=== PATIENT | male | born 1935 | race Caucasian/White ===

== ENCOUNTER 2020-02-01 10:40 | Emergency (ER) | payer MEDICARE, BC ==
--- NOTE | 2020-02-01 10:51 | EDM.PDOC ---
ED HPI GENERAL MEDICAL PROBLEM - General Chief Complaint: General Stated Complaint: COVID Time Seen by Provider: 02/01/20 10:51 Source of Information: Reports: Patient, EMS, EMS Notes Reviewed, Old Records History Limitations: Reports: No Limitations - History of Present Illness INITIAL COMMENTS - FREE TEXT/NARRATIVE: Gerald, 84-year-old male, brought by ambulance from his residence today after sliding onto the floor with no noted injury. He has had increasing weakness since his discharge home on 28 January 2020. Underwent hip replacement on [address] Bernstein, [facility] in [place]. Diagnosed with positive COVID-19 on 24 January, at which time he was transferred to the [facility] for Covid care. He had been assisted with home therapy as well as home nursing staff aware of his overall situation. They had discussed the irritation at the distal aspect of his right hip incision that is been draining slightly. Today when the ambulance arrived, with the intent of assisting him into bed, his O2 saturations were 81 to 82% on room air. His significant weakness required them to do a total left as he did not have leg strength to assist. They placed him on a nonrebreather with 100% oxygen 12 L increasing his saturations to 96-97%. His respiratory rate was 21-22 nonlabored. He was brought to the emergency department secondary of the discussion with family as it was not recommended for a clinic appointment secondary of his positive Covid diagnosis. It is noted he is a full code per review of record, discussion with his , as well with Gerald himself. - Related Data Allergies Allergy/AdvReac Type Severity Reaction Status Date / Time No Known Drug Allergies Allergy Other Verified 12/14/13 17:57 Home Meds: Home Meds Apixaban [Eliquis] 2.5 mg PO BID 02/01/20 [History] Torsemide 40 mg PO DAILY 02/01/20 [History] dexAMETHasone [Dexamethasone] 6 mg PO DAILY 02/01/20 [History] oxyCODONE 1 - 2 tab PO Q8H PRN 02/01/20 [History] polyethylene glycoL 3350 [MiraLAX] 17 gm PO DAILY PRN 02/01/20 [History] Past Medical History HEENT History: Reports: Hard of Hearing, Impaired Vision Cardiovascular History: Reports: High Cholesterol, Hypertension Respiratory History: Reports: Sleep Apnea Gastrointestinal History: Reports: Gastritis, GERD, Helicobacter Pylori Endocrine/Metabolic History: Reports: Diabetes, Type II Hematologic History: Reports: Anemia Social & Family History - Family History Family Medical History: Noncontributory ED ROS GENERAL - Review of Systems Review Of Systems: Comprehensive ROS is negative, except as noted in HPI. ED EXAM, GENERAL - Physical Exam Exam: See Below Free Text/Narrative:: HEENT negative discharge or deformity wearing glasses. There is no icterus no injection. [place] moist mucous membranes with no erythema. Neck is soft supple no lymphadenopathy no JVD. Thorax is clear upper with mildly diminished raspy bases anterior and lateral. Cardiac is regular I do not appreciate any murmur. Abdomen is somewhat rotund with a peritoneal dialysis port present to the mid left abdominal wall secured in place on the thorax. Bowel sounds are noted. Weakness is noted in general general malaise. There are no focal deficits appreciated Skin is warm, dry with no integument disruption other than the distal incision site of the right hip which shows some friable tissue that appears to have been irritated and possibly removed with dressing change. Cultures obtained from this. Right wrist area has a thrill from hemodialysis shunt that he states has been used 3 times since its placement. Course - Vital Signs Last Recorded V/S: Last Vital Signs Temp 37.4 C 02/01/20 14:14 Pulse 78 02/01/20 14:14 Resp 20 02/01/20 14:02 BP 128/69 02/01/20 14:02 Pulse Ox 96 02/01/20 14:14 - Orders/Labs/Meds Orders: Active Orders 24 hr Category Date Time Status ABG [RT Arterial Blood Gases, ABG] [RC] Click to Edit Care 02/01/20 12:57 Active CULTURE BLOOD [BC] Stat Lab 02/01/20 11:20 Received MISCELLANEOUS CULT [MREF] Stat Lab 02/01/20 11:15 Received Sodium Chloride 0.9% [Normal Saline] 1,000 ml Med 02/01/20 12:15 Active IV ASDIRECTED Medication Orders Sodium Chloride (Normal Saline) 1,000 mls @ 150 mls/hr IV ASDIRECTED HORTENCIA Last Admin: 02/01/20 12:18 Dose: 150 mls/hr Documented by: STACIE Labs: Laboratory Tests 02/01/20 02/01/20 02/01/20 Range/Units 11:20 11:20 11:20 WBC 20.23 H (5.00-10.00) 10^3/uL RBC 2.71 L (4.50-6.00) 10^6/uL Hgb 8.6 L (13.0-17.0) g/dL Hct 25.2 L (40.0-52.0) % MCV 93.0 H (82.0-92.0) fL MCH 31.7 H (27.0-31.0) pg MCHC 34.1 (32.0-36.0) g/dL RDW 16.7 H (11.5-14.5) % Plt Count 254 (150-400) 10^3/uL MPV 10.2 (7.4-10.4) fL Immature Gran % (Auto) 2.4 (0.0-5.0) % Neut % (Auto) 86.9 H (50.0-70.0) % Lymph % (Auto) 5.9 L (20.0-40.0) % [place] % (Auto) 4.6 (2.0-8.0) % Eos % (Auto) 0.2 L (1.0-3.0) % Baso % (Auto) 0.0 (0.0-1.0) % Neut # (Auto) 17.55 H (2.50-7.00) 10^3/uL Lymph # (Auto) 1.20 (1.00-4.00) 10^3/uL [place] # (Auto) 0.94 H (0.10-0.80) 10^3/uL Eos # (Auto) 0.04 L (0.10-0.30) 10^3/uL Baso # (Auto) 0.01 (0.00-0.10) 10^3/uL Immature Gran # (Auto) 0.49 (0.00-0.50) 10^3/uL POC ABG pH (7.35-7.45) pH POC ABG pCO2 (35-48) mmHg POC ABG pO2 (83-108) mmHg POC ABG HCO3 (21-28) mmol/L ABG O2 Sat (Calculated) (94-98) % POC ABG Base Excess (-2-3) mmol/L Sodium 136 D (136-145) mmol/L Potassium 3.2 L D (3.3-5.3) mmol/L Chloride 96 L (98-115) mmol/L Carbon Dioxide 24.2 (21.0-32.0) mmol/L Anion Gap 19.0 H (5-15) mmol/L BUN 98 H* D (6-25) mg/dL Creatinine 8.23 H* D (0.51-1.17) mg/dL Est Cr Clr Drug Dosing 6.90 mL/min Estimated GFR (MDRD) 6 mL/min Glucose 94 (75 - 99) mg/dL Lactic Acid 1.7 (0.4-2.0) mmol/L Calcium 8.6 L (8.7-10.3) mg/dL Total Bilirubin 0.4 (0.2-1.0) mg/dL AST 31 (15-37) U/L ALT 9 L (12-78) U/L Alkaline Phosphatase 65 (46-116) IU/L Total Protein 6.9 (6.4-8.2) g/dL Albumin 2.00 L (3.00-4.80) g/dL 02/01/20 Range/Units 13:15 WBC (5.00-10.00) 10^3/uL RBC (4.50-6.00) 10^6/uL Hgb (13.0-17.0) g/dL Hct (40.0-52.0) % MCV (82.0-92.0) fL MCH (27.0-31.0) pg MCHC (32.0-36.0) g/dL RDW (11.5-14.5) % Plt Count (150-400) 10^3/uL MPV (7.4-10.4) fL Immature Gran % (Auto) (0.0-5.0) % Neut % (Auto) (50.0-70.0) % Lymph % (Auto) (20.0-40.0) % [place] % (Auto) (2.0-8.0) % Eos % (Auto) (1.0-3.0) % Baso % (Auto) (0.0-1.0) % Neut # (Auto) (2.50-7.00) 10^3/uL Lymph # (Auto) (1.00-4.00) 10^3/uL [place] # (Auto) (0.10-0.80) 10^3/uL Eos # (Auto) (0.10-0.30) 10^3/uL Baso # (Auto) (0.00-0.10) 10^3/uL Immature Gran # (Auto) (0.00-0.50) 10^3/uL POC ABG pH 7.4 (7.35-7.45) pH POC ABG pCO2 36 (35-48) mmHg POC ABG pO2 59 L (83-108) mmHg POC ABG HCO3 24 (21-28) mmol/L ABG O2 Sat (Calculated) 90.9 L (94-98) % POC ABG Base Excess -1 (-2-3) mmol/L Sodium (136-145) mmol/L Potassium (3.3-5.3) mmol/L Chloride (98-115) mmol/L Carbon Dioxide (21.0-32.0) mmol/L Anion Gap (5-15) mmol/L BUN (6-25) mg/dL Creatinine (0.51-1.17) mg/dL Est Cr Clr Drug Dosing mL/min Estimated GFR (MDRD) mL/min Glucose (75 - 99) mg/dL Lactic Acid (0.4-2.0) mmol/L Calcium (8.7-10.3) mg/dL Total Bilirubin (0.2-1.0) mg/dL AST (15-37) U/L ALT (12-78) U/L Alkaline Phosphatase (46-116) IU/L Total Protein (6.4-8.2) g/dL Albumin (3.00-4.80) g/dL Meds: Medications Generic Name Dose Route Start Last Admin Trade Name Freq PRN Reason Stop Dose Admin Sodium Chloride 1,000 mls @ 150 mls/hr 02/01/20 12:15 02/01/20 12:18 Normal Saline IV 150 mls/hr ASDIRECTED HORTENCIA Administration Discontinued Medications Generic Name Dose Route Start Last Admin Trade Name Freq PRN Reason Stop Dose Admin Ceftriaxone Sodium 1 gm 02/01/20 12:33 02/01/20 12:41 Rocephin IVPUSH 02/01/20 12:34 1 gm ONETIME ONE Administration Ceftriaxone Sodium Confirm 02/01/20 12:34 02/01/20 12:36 Rocephin Administered 02/01/20 12:35 Not Given Dose 1 gm .ROUTE .STK-MED ONE Sodium Chloride Confirm 02/01/20 12:06 02/01/20 12:36 Normal Saline Administered 02/01/20 12:07 Not Given Dose 1,000 mls @ as directed .ROUTE .STK-MED ONE Departure - Departure Time of Disposition: 16:11 Disposition: DC/Tfer to Acute Hospital 02 Condition: Fair Clinical Impression: COVID-19 virus detected, Pneumonia, Status post right hip replacement, Chronic renal failure, stage 4 (severe), Peritoneal dialysis catheter in place, Presence of arteriovenous shunt for hemodialysis - Discharge Information *PRESCRIPTION DRUG MONITORING PROGRAM REVIEWED*: Not Applicable *COPY OF PRESCRIPTION DRUG MONITORING REPORT IN PATIENT [place]: Not Applicable Referrals: Yaz Caballero WEED COOKING OPERATOR [Primary Care Provider] - Forms: ED Department Discharge Additional Instructions: Transfer via [facility] ambulance by ground to [facility] unit. Sepsis Event Note (ED) - Focused Exam Vital Signs: Vital Signs Temp Pulse Resp BP Pulse Ox 02/01/20 14:14 37.4 C 78 96 02/01/20 14:02 82 20 128/69 94 L 02/01/20 12:31 74 18 113/56 L 100 02/01/20 12:15 78 18 112/58 L 98 02/01/20 12:00 78 20 119/48 L 96 02/01/20 11:30 82 18 130/61 95 02/01/20 11:15 80 18 118/61 95 02/01/20 11:00 82 20 124/62 94 L 02/01/20 10:50 37.4 C 78 20 116/75 94 L 02/01/20 10:45 20 82 L - Problem List & Annotations (1) COVID-19 virus detected SNOMED Code(s): 3272669886021830 Code(s): U07.1 - COVID-19 Status: Acute Current Visit: Yes (2) Status post right hip replacement SNOMED Code(s): 603285325, 450277639, 240515915, 652799660 Code(s): Z96.641 - PRESENCE OF RIGHT ARTIFICIAL HIP JOINT Status: Acute Priority: High Current Visit: Yes (3) Pneumonia SNOMED Code(s): 581247377 Code(s): J18.9 - PNEUMONIA, UNSPECIFIED ORGANISM Status: Acute Priority: High Current Visit: Yes Qualifiers: Pneumonia type: due to unspecified organism Laterality: bilateral (4) Chronic renal failure, stage 4 (severe) SNOMED Code(s): 26794927, 300110429 Code(s): N18.4 - CHRONIC KIDNEY DISEASE, STAGE 4 (SEVERE) Status: Acute Priority: High Current Visit: Yes (5) Peritoneal dialysis catheter in place SNOMED Code(s): 016368254 Code(s): Z99.2 - DEPENDENCE ON RENAL DIALYSIS Status: Acute Priority: High Current Visit: Yes (6) Presence of arteriovenous shunt for hemodialysis SNOMED Code(s): 315983611, 798577411 Code(s): Z99.2 - DEPENDENCE ON RENAL DIALYSIS Status: Acute Priority: High Current Visit: Yes - Problem List Review Problem List Initiated/Reviewed/Updated: Yes - My Orders Last 24 Hours: My Active Orders 02/01/20 11:15 MISCELLANEOUS CULT [MREF] Stat 02/01/20 11:20 CULTURE BLOOD [BC] Stat 02/01/20 12:15 Sodium Chloride 0.9% [Normal Saline] 1,000 ml IV ASDIRECTED 02/01/20 12:57 ABG [RT Arterial Blood Gases, ABG] [RC] Click to Edit - Assessment/Plan Last 24 Hours: My Active Orders 02/01/20 11:15 MISCELLANEOUS CULT [MREF] Stat 02/01/20 11:20 CULTURE BLOOD [BC] Stat 02/01/20 12:15 Sodium Chloride 0.9% [Normal Saline] 1,000 ml IV ASDIRECTED 02/01/20 12:57 ABG [RT Arterial Blood Gases, ABG] [RC] Click to Edit Plan: Will be transferred to the Covid unit in [place] via [facility] ambulance.
--- NOTE | 2020-02-01 12:04 | CR ---
[id number] RAD/RAD Chest PA or AP 1V EXAM: FRONTAL CHEST INDICATION: DESATURATION. COMPARISON: None. DISCUSSION: Moderate patchy bilateral infiltrates most suggestive of infection. There is mild cardiomegaly with possible early central vascular congestion. Mild elevation right hemidiaphragm. IMPRESSION: 1. Moderate bilateral infiltrates most suggestive of infection. Jose C Winn MD 02/01/20 0422 Thank you for allowing us to participate in the care of your patient.
[2020-02-01] MEDS: Sodium Chloride 0.9% 1,000 ML IV SCH (12:18)
[2020-02-01] MEDS: cefTRIAXone 1 GM Vial ONE (12:36)
[2020-02-01] MEDS: Sodium Chloride 0.9% 1,000 ML ONE (12:36)
[2020-02-01] MEDS: cefTRIAXone 1 GM Vial IVPUSH ONE (12:41)
[2020-02-01 13:28] LABS: PCO2 ARTERIAL,POC 36 mmHg (35-48)
[2020-02-01 14:03] VITALS: BP 128/69
[2020-02-01 17:51] VITALS: PULSE 82
== END 2020-02-01 16:10 ==
LOC: KA.ED 10:40
DX: U07.1 COVID-19 (principal); J12.89 Other viral pneumonia; N18.4 Chronic kidney disease, stage 4 (severe); E11.22 Type 2 diabetes mellitus with diabetic chronic kidney disease; Z99.2 Dependence on renal dialysis; Z79.01 Long term (current) use of anticoagulants; Z96.641 Presence of right artificial hip joint
CPT/HCPCS: 36415; 36600; 71045; 80053; 82803; 83605; 85025; 87040; 87070; 87205; 96374; 96375; 99284; 99285-25; J0696; J7030

== ENCOUNTER 2021-10-21 20:15 | Emergency (ER) | payer MEDICARE, BC ==
[2021-10-21] MEDS ORDERED: cefTRIAXone 1 GM Vial IVPUSH ONE (20:53)
[2021-10-21] MEDS ORDERED: Acetaminophen 500 MG Tab PO ONE (21:06)
[2021-10-21] MEDS ORDERED: Acetaminophen 500 MG Tab ONE (21:08)
[2021-10-21] MEDS ORDERED: Sodium Chloride 0.9% 10 ML Syringe FLUSH PRN (21:15)
[2021-10-21 21:27] LABS: ANION GAP 17.8 mmol/L (5-15)
[2021-10-21] MEDS ORDERED: Piperacillin/Tazobactam 3.375 GM in Sodium Chloride 0.9% 100 ML IV ONE (21:54)
[2021-10-21] MEDS ORDERED: Sodium Chloride 0.9% 1,000 ML IV ONE (21:56)
[2021-10-21] MEDS ORDERED: Piperacillin/Tazobactam/Dext 3.375 GM in Premix Bag 1 BAG IV ONE (22:22)
== END 2021-10-21 23:20 ==
LOC: KA.ED 20:15
DX: T85.71XA Infection and inflammatory reaction due to peritoneal dialysis catheter, initial encounter (principal); L03.311 Cellulitis of abdominal wall; R00.0 Tachycardia, unspecified; D72.828 Other elevated white blood cell count; K21.9 Gastro-esophageal reflux disease without esophagitis; E78.00 Pure hypercholesterolemia, unspecified; I12.0 Hypertensive chronic kidney disease with stage 5 chronic kidney disease or end stage renal disease; E11.22 Type 2 diabetes mellitus with diabetic chronic kidney disease; N18.6 End stage renal disease; D63.1 Anemia in chronic kidney disease; Z99.2 Dependence on renal dialysis
CPT/HCPCS: 36415; 80048; 83605; 85025; 96365; 96375; 99285-25; A9270-GY; J0696; J2543; J7030